=== PATIENT | female | born 1965 | race Caucasian/White ===

== ENCOUNTER → 2016-12-17 | Outpatient (CLI) | payer OTHER ==
[~2016-12-17] MED LIST: COLACE 100MG C100 MG PO; IBUPROFEN600 MG PO; LEXAPRO10 MG PO; LORTAB 5-325 M1 EACH PO; LORTAB 7.5-3251 EACH PO; LOVENOX SY40 MG/0.4 SQ; OSCAL 500 + D TA1 EA PO; PERCOCET 5-3251 EACH PO; ZOFRAN 8 MG TAB8 MG PO; ZOFRAN PO
== END ==
LOC: CT 08:00
DX: C50.412 Malignant neoplasm of upper-outer quadrant of left female breast (principal); C79.51 Secondary malignant neoplasm of bone; N62 Hypertrophy of breast; K80.20 Calculus of gallbladder without cholecystitis without obstruction
CPT/HCPCS: 71260; J7050; Q9962

== ENCOUNTER → 2017-03-12 | Outpatient (CLI) | payer OTHER | LOC: CT 09:00 | DX: C50.412 Malignant neoplasm of upper-outer quadrant of left female breast (principal); C79.51 Secondary malignant neoplasm of bone; N62 Hypertrophy of breast; Z17.0 Estrogen receptor positive status [ER+]; N63 Unspecified lump in breast; E27.8 Other specified disorders of adrenal gland | CPT/HCPCS: 71260; J7050; Q9962 ==